=== PATIENT | male | born 1970 | race African-American/Black ===

== ENCOUNTER 2018-05-14 22:36 | Emergency (ER) | payer OTHER ==
[~2018-05-14] VITALS: Ht 175.3 cm; Wt 79.4 kg
--- NOTE | 2018-05-14 22:58 | ED SKIN/ALLERGY COMPLAINT ---
History of Present Illness General Chief Complaint: Skin Rash/ Abcess Stated Complaint: ?ALLERGIC REACTION, RASH TO BODY, ITCHY PER PT Source: patient Exam Limitations: no limitations Vital Signs & Intake/Output Vital Signs & Intake/Output Vital Signs Date Time Temp Pulse Resp B/P B/P Pulse O2 O2 Flow FiO2 Mean Ox Delivery Rate 05/15 0048 98.3 69 20 143/59 97 Room Air 05/14 2313 98 Room Air 05/14 2305 97 05/14 2249 97.9 85 18 115/68 96 Room Air ED Intake and Output 05/15 0000 05/14 1200 Intake Total Output Total Balance Patient 175 lb Weight Weight Estimated Measurement Method Allergies Coded Allergies: No Known Allergies (05/14/18) Triage Note: RECEIVED 47 YO MALE C/O COVERED IN HIVES ALL OVER BODY, STARTED ABOUT 9:30 PM TONITE. PT REPORTS SOME SOB, SOME WHEEZING AUSCULTATED UPPER LOBES. Triage Nurses Notes Reviewed? yes Onset: Abrupt Duration: hour(s):, constant, continues in ED HPI: 47-year-old male comes into the emergency room for further evaluation of rash. Patient reports starting around 8:30 tonight he developed a generalized rash everywhere. Denies any new foods. Denies any new skin care products. Rash is itchy. (Jaxson Rome) Reconcile Medications Buprenorphine HCl/Naloxone HCl (Suboxone 12 MG-3 MG Sl Film) (Unknown Strength) FILM (Unknown Dose) MENTAL HEALTH (Reported) Methylprednisolone. (Medrol) 4 MG TAB.DS.PK 1 DP PO AD ALLERGIC REACTION 6 on day 1 then reduce by one tablet daily until gone (Paloma CAAL,Bernard) Past History Travel History Traveled to [place] past 21 day No Medical History Any Pertinent Medical History? see below for history Neurological: NONE EENT: NONE Cardiovascular: NONE Respiratory: NONE Gastrointestinal: NONE Hepatic: NONE Renal: NONE Musculoskeletal: NONE Psychiatric: NONE Endocrine: NONE Blood Disorders: NONE Cancer(s): NONE Surgical History Surgical History: non-contributory Psychosocial History What is your primary language Greenlandic Tobacco Use: Never used Family History Hx Contributory? No (Jaxson Rome) Review of Systems Review of Systems Constitutional: Reports: no symptoms. EENTM: Reports: no symptoms. Respiratory: Reports: no symptoms. Cardiovascular: Reports: no symptoms. GI: Reports: no symptoms. Genitourinary: Reports: no symptoms. Musculoskeletal: Reports: no symptoms. Skin: Reports: see HPI. Neurological/Psychological: Reports: no symptoms. Hematologic/Endocrine: Reports: no symptoms. Immunologic/Allergic: Reports: no symptoms. All Other Systems: Reviewed and Negative (Jaxson Rome) Physical Exam Physical Exam General Appearance: well developed/nourished, mild distress Head: atraumatic Eyes: Bilateral: normal appearance. Ears, Nose, Throat: normal ENT inspection, hearing grossly normal Neck: normal inspection Respiratory: no respiratory distress Back: normal inspection Extremities: normal inspection, normal range of motion, no edema Neurologic/Psych: awake, alert, oriented x 3, normal mood/affect Skin: intact, rash Skin Problem Location: generalized Skin Problem Character: urticarial (Jaxson Rome) Progress Differential Diagnosis: abscess/cellulitis, allergic reaction, anaphylaxis, angioedema, contact dermatitis Plan of Care: Current Medications Sig/Katelynn Start time Last Medication Dose Stop Time Status Admin Albuterol Sulfate 3 ML ONCE ONE 05/14 2300 UNVr (Proventil) 05/14 2301 Diphenhydramine HCl 50 MG ONCE ONE 05/14 2300 UNVr (Benadryl) 05/14 2301 Famotidine 20 MG ONCE ONE 05/14 2300 UNVr (Pepcid) 05/14 2301 Methylprednisolone 125 MG ONCE ONE 05/14 2300 UNVr (Solu Medrol) 05/14 2301 Comments: 05/15/2018 12:47:59 AM No tongue swelling. Patient feels significantly better. Patient's rash has resolved upon reevaluation and he feels ready for discharge. Return if any other concerns worsening symptoms. Understands and agrees with plan of care. Etiology of allergic reaction unclear at this time. (Jaxson Rome) Departure Departure Disposition: HOME OR SELF CARE Condition: Stable Clinical Impression Primary Impression: Allergic reaction Additional Instructions: Take Medrol Dosepak as prescribed. Take [id number] Benadryl. Return if any tongue swelling or any other concerns worsening symptoms. Please go over all results of today's visit with your primary care doctor. Contact your primary care doctor to let them know you were here in the emergency room. There may be nonspecific findings which may not be related to your visit today here in the emergency room but may require further evaluation and chronic monitoring by your primary care doctor. If you had a laceration today the chance of foreign body always remains. You should follow-up with your primary care doctor for recheck in 3-5 days for a wound check. If you had an x-ray done there is a chance that a fracture could have been missed on initial read and you should follow-up with your primary care doctor for repeat x-rays if symptoms persist. If your blood pressure was elevated here in the emergency room please have rechecked by [facility] primary care doctor within the next 48. If you were prescribed a narcotic here in the emergency room or any type of controlled substances you're not allowed to drive while taking this medication or operate any type of heavy machinery. Narcotics can make you feel lightheaded dizziness nausea and can cause constipation. You may need to diamond picker a stool softener. Thank you for choosing [facility] emergency room. Please return to the emergency room immediately if you have any other concerns worsening of symptoms. Departure Forms: Customer Survey General Discharge Information Prescriptions: Current Visit Scripts Methylprednisolone. (Medrol) 1 DP PO AD #1 DP 6 on day 1 then reduce by one tablet daily until gone (Jaxson Rome) PA/CARRIER LOADER Co-Sign Statement Statement: ED Attending supervision documentation- I saw and evaluated the patient. I have also reviewed all the pertinent lab results and diagnostic results. I agree with the findings and the plan of care as documented in the PA's/CARRIER LOADER's documentation. x I have reviewed the ED Record and agree with the PA's/CARRIER LOADER's documentation. [] Additions or exceptions (if any) to the PAs/CARRIER LOADER's note and plan are summarized below: [] (Paloma CAAL,Bernard)
[2018-05-14] MEDS ORDERED: SUBOXONE 12 MG1 EACH (23:14)
[2018-05-15] MEDS ORDERED: MEDROL4 M2 PO (00:47)
[2018-05-15 00:48] VITALS: BP 143/59
== END 2018-05-15 00:54 ==
LOC: ERH 22:36
DX: T78.40XA Allergy, unspecified, initial encounter (principal); R21 Rash and other nonspecific skin eruption
CPT/HCPCS: 1263; 96374; 96375; J1200; J2930